=== PATIENT | male | born 1990 | race Caucasian/White ===

== ENCOUNTER 2021-09-04 19:38 | Emergency (ER) | payer MEDICARE ==
[~2021-09-04] VITALS: Ht 180.3 cm; Wt 122.5 kg
== END 2021-09-04 23:27 | disposition home or self-care (01) ==
LOC: ED 19:38
DX: S00.11XA Contusion of right eyelid and periocular area, initial encounter (principal); S80.212A Abrasion, left knee, initial encounter; M54.50 Low back pain, unspecified; W18.39XA Other fall on same level, initial encounter; Y93.89 Activity, other specified; Y92.89 Other specified places as the place of occurrence of the external cause; Y99.8 Other external cause status

== ENCOUNTER 2021-10-12 14:23 | Emergency (ER) | payer MEDICARE ==
[~2021-10-12] VITALS: Ht 182.8 cm; Wt 127.0 kg
[2021-10-12 16:15] LABS: BASO % 0.2 % (0.0-1.0); EOS # 0.4 10*3/uL (0.0-0.4); EOS % 3.7 % (1.0-4.0); HEMATOCRIT 44.2 % (42.0-52.0); LYMPH # 3.4 10*3/uL (1.3-4.4); LYMPH % 28.6 % (27.0-41.0); MEAN CELL VOLUME 90.6 fl (80.0-94.0); MEAN CORPUSCULAR HGB 29.5 pg (27.0-31.0); MEAN CORPUSCULAR HGB CONC 32.6 g/dl (33.0-37.0); MEAN PLATELET VOLUME 9.3 fl (9.6-12.3); MONO # 0.8 10*3/uL (0.1-1.0); MONO % 6.7 % (3.0-9.0); NEUT # 7.2 10*3/uL (2.3-7.9); NEUT % 60.5 % (47.0-73.0); PLATELET COUNT AUTOMATED 338 10*3/uL (130-400); RED BLOOD COUNT 4.88 10*6/uL (4.50-5.90); RED CELL DISTRI WIDTH 14.4 % (0-14.5); WHITE BLOOD COUNT 11.9 10*3/uL (4.8-10.8)
[2021-10-12 16:30] LABS: BUN 13 mg/dl (7-24); CHLORIDE 106 mmol/L (98-107); CREATININE 1.29 mg/dL (0.70-1.30); SGOT/AST 26 IU/L (3-35); SGPT/ALT 63 U/L (12-78); SODIUM 137 mmol/L (136-145)
[2021-10-12 16:32] LABS: ALKALINE PHOSPHATASE 99 U/L (45-117); TOTAL PROTEIN 7.9 gm/dL (6.4-8.2)
[2021-10-12] MEDS ORDERED: AUGMENTIN 875-875 MG PO (16:43)
== END 2021-10-12 17:32 | disposition home or self-care (01) ==
LOC: ED 14:23
PROVIDERS: Emergency Medicine
DX: L03.116 Cellulitis of left lower limb (principal)